=== PATIENT | female | born 1990 | race Caucasian/White ===

== ENCOUNTER 2017-01-21 23:29 | Emergency (ER) | payer OTHER ==
[~2017-01-21 23:29] MED LIST: AUGMENTIN875 MG PO; PRENATAL FORMU1 EACH PO; PROVENTIL HFA6.7 GM INH; TYLENOL500 MG PO
[2017-01-22 00:05] LABS: BILIRUBIN NEGATIVE (NEGATIVE); BLOOD 2+ Ery/uL (NEGATIVE); CLARITY CLEAR (CLEAR); COLOR YELLOW (YELLOW); GLUCOSE (U) NORMAL (NORMAL); KETONE (U) TRACE mg/dL (NEGATIVE); LEUKOCYTES NEGATIVE Leu/uL (NEGATIVE); NITRITE NEGATIVE (NEGATIVE); PROTEIN NEGATIVE (NEGATIVE); SPECIFIC GRAVITY 1.015 (1.001-1.030); UROBILINOGEN 0.2 mg/dL (0.2-1.0); pH 6.5 (5.0-9.0)
[2017-01-22 00:07] LABS: BASOPHIL 0.2 % (0-2); EOSINOPHIL 10.5 % (0-5); HCT 43.6 % (37.0-47.0); LYMPHOCYTE 28.1 % (15-48); MCH 29.1 pg (25.0-31.0); MCHC 34.4 g/dL (32.0-36.0); MCV 84.7 fL (78.0-100.0); MONOCYTE 6.4 % (0-12); MPV 9.2 fL (6.0-9.5); NEUTROPHIL 54.8 % (41-80); PLT 306 K/uL (150-400); RBC 5.15 M/uL (4.20-5.40); RDW 13.1 % (11.5-14.0); WBC 8.3 K/uL (4.0-10.5)
[2017-01-22 00:18] LABS: AMPHETAMINES NEGATIVE (NEGATIVE); BARBITURATES NEGATIVE (NEGATIVE); BENZODIAZEPINES POSITIVE (NEGATIVE); COCAINE NEGATIVE (NEGATIVE); MARIJUANA (THC) NEGATIVE (NEGATIVE); METHADONE NEGATIVE (NEGATIVE); TRICYCLIC ANTIDEPRESSANT POSITIVE (NEGATIVE)
[2017-01-22 00:47] LABS: BILIRUBIN - TOTAL 0.5 mg/dL (0.1-1.0); CREATININE 0.9 mg/dL (0.5-1.0); GLOBULIN (CALCULATION) 3.1 g/dL (2.2-4.2); POTASSIUM 3.4 mmol/L (3.5-5.1); TOTAL PROTEIN 8.1 g/dL (6.4-8.3)
== END 2017-01-22 04:13 | disposition home or self-care (01) ==
LOC: FER 23:29
PROVIDERS: Internal Medicine
DX: K58.9 Irritable bowel syndrome, unspecified (principal); R11.2 Nausea with vomiting, unspecified; M54.9 Dorsalgia, unspecified; K21.9 Gastro-esophageal reflux disease without esophagitis; F41.9 Anxiety disorder, unspecified; Z79.899 Other long term (current) drug therapy
CPT/HCPCS: 36415; 80053; 80305; 81001; 82150; 83690; 85025; 86140; C9113; J2405

== ENCOUNTER 2017-01-24 16:31 | Emergency (ER) | payer OTHER ==
[2017-01-24 17:35] LABS: BILIRUBIN NEGATIVE (NEGATIVE); BLOOD 2+ Ery/uL (NEGATIVE); CLARITY CLEAR (CLEAR); COLOR STRAW (YELLOW); GLUCOSE (U) NORMAL (NORMAL); KETONE (U) NEGATIVE (NEGATIVE); LEUKOCYTES NEGATIVE Leu/uL (NEGATIVE); NITRITE NEGATIVE (NEGATIVE); PROTEIN NEGATIVE (NEGATIVE); SPECIFIC GRAVITY <=1.005 (1.001-1.030); UROBILINOGEN 0.2 mg/dL (0.2-1.0); pH 6.5 (5.0-9.0)
[2017-01-24 17:51] LABS: BASOPHIL 0.3 % (0-2); EOSINOPHIL 7.9 % (0-5); HCT 41.2 % (37.0-47.0); HGB 14.4 g/dl (12.5-16.0); LYMPHOCYTE 20.5 % (15-48); MCH 29.6 pg (25.0-31.0); MCV 84.8 fL (78.0-100.0); MONOCYTE 4.2 % (0-12); MPV 9.9 fL (6.0-9.5); NEUTROPHIL 67.1 % (41-80); PLT 315 K/uL (150-400); RBC 4.86 M/uL (4.20-5.40); RDW 12.9 % (11.5-14.0); WBC 10.9 K/uL (4.0-10.5)
[2017-01-24 18:01] LABS: BACTERIA TRACE; URINARY WBC RARE
[2017-01-24 18:04] LABS: ALBUMIN 4.8 g/dL (3.5-5.0); BILIRUBIN - TOTAL 0.4 mg/dL (0.1-1.0); CREATININE 0.9 mg/dL (0.5-1.0); GLOBULIN (CALCULATION) 2.9 g/dL (2.2-4.2); POTASSIUM 3.5 mmol/L (3.5-5.1); TOTAL PROTEIN 7.7 g/dL (6.4-8.3)
== END 2017-01-24 18:46 | disposition home or self-care (01) ==
LOC: FER 16:31
PROVIDERS: Nurse Practitioner
DX: R19.7 Diarrhea, unspecified (principal); R10.84 Generalized abdominal pain; R11.2 Nausea with vomiting, unspecified
CPT/HCPCS: 36415; 80053; 81001; 82150; 83690; 85025; J1885; J2270; J2765

== ENCOUNTER 2017-01-29 15:59 | Emergency (ER) | payer OTHER ==
[2017-01-29 17:55] LABS: BASOPHIL 0.3 % (0-2); EOSINOPHIL 9.7 % (0-5); HCT 46.1 % (37.0-47.0); LYMPHOCYTE 18.1 % (15-48); MCH 29.1 pg (25.0-31.0); MCHC 34.9 g/dL (32.0-36.0); MCV 83.4 fL (78.0-100.0); MONOCYTE 6.3 % (0-12); MPV 9.5 fL (6.0-9.5); NEUTROPHIL 65.6 % (41-80); PLT 334 K/uL (150-400); RBC 5.53 M/uL (4.20-5.40); RDW 12.8 % (11.5-14.0)
[2017-01-29 17:56] LABS: BILIRUBIN NEGATIVE (NEGATIVE); BLOOD 2+ Ery/uL (NEGATIVE); CLARITY CLEAR (CLEAR); COLOR YELLOW (YELLOW); GLUCOSE (U) NORMAL (NORMAL); KETONE (U) NEGATIVE (NEGATIVE); LEUKOCYTES NEGATIVE Leu/uL (NEGATIVE); NITRITE NEGATIVE (NEGATIVE); PROTEIN NEGATIVE (NEGATIVE); SPECIFIC GRAVITY <=1.005 (1.001-1.030); UROBILINOGEN 0.2 mg/dL (0.2-1.0); pH 5.5 (5.0-9.0)
[2017-01-29 17:56] LABS: HGB 16.1 g/dl (12.5-16.0)
[2017-01-29 18:01] LABS: BACTERIA TRACE
[2017-01-29 18:32] LABS: ALBUMIN 5.4 g/dL (3.5-5.0); BILIRUBIN - TOTAL 0.4 mg/dL (0.1-1.0); CREATININE 0.9 mg/dL (0.5-1.0); GLOBULIN (CALCULATION) 3.3 g/dL (2.2-4.2); TOTAL PROTEIN 8.7 g/dL (6.4-8.3)
== END 2017-01-29 18:56 | disposition home or self-care (01) ==
LOC: FER 15:59
PROVIDERS: Emergency Medicine
DX: R10.9 Unspecified abdominal pain (principal); R11.2 Nausea with vomiting, unspecified; R19.7 Diarrhea, unspecified; J45.909 Unspecified asthma, uncomplicated
CPT/HCPCS: 36415; 80053; 81001; 82150; 83690; 85025; 87339; J2270; J2405

== ENCOUNTER → 2017-01-30 | Day surgery (SDC) | payer OTHER | END | disposition home or self-care (01) | LOC: FAS 10:51 | DX: K29.50 Unspecified chronic gastritis without bleeding (principal); K21.9 Gastro-esophageal reflux disease without esophagitis; F32.9 Major depressive disorder, single episode, unspecified; F41.1 Generalized anxiety disorder; J45.909 Unspecified asthma, uncomplicated; Z90.89 Acquired absence of other organs; Z82.5 Family history of asthma and other chronic lower respiratory diseases; Z83.3 Family history of diabetes mellitus; Z83.42 Family history of familial hypercholesterolemia; Z82.49 Family history of ischemic heart disease and other diseases of the circulatory system; Z83.49 Family history of other endocrine, nutritional and metabolic diseases; Z80.42 Family history of malignant neoplasm of prostate; Z79.899 Other long term (current) drug therapy; Z98.890 Other specified postprocedural states | CPT/HCPCS: 84703; 88305; J2704 ==

== ENCOUNTER → 2017-02-01 | Day surgery (SDC) | payer OTHER | END | disposition home or self-care (01) | LOC: FAS 09:42 | DX: K81.1 Chronic cholecystitis (principal); J45.909 Unspecified asthma, uncomplicated; K21.9 Gastro-esophageal reflux disease without esophagitis; N39.0 Urinary tract infection, site not specified; F41.8 Other specified anxiety disorders; E03.9 Hypothyroidism, unspecified; D50.9 Iron deficiency anemia, unspecified; G43.909 Migraine, unspecified, not intractable, without status migrainosus; Z79.899 Other long term (current) drug therapy; Z98.890 Other specified postprocedural states | CPT/HCPCS: 74300; 88304; J1100; J1170; J2270; J2405; J2704; J2710; J3010; Q9962 ==

== ENCOUNTER 2021-03-17 18:28 | Emergency (ER) | payer OTHER ==
[~2021-03-17 18:28] MED LIST changes: +BACTRIM DS TAB1 EACH PO; +CEFDINIR300 MG PO; +INDERAL20 MG PO; +IRON325 M1 PO; +KLONOPIN1 MG PO; +LAMICTAL100 MG PO; +LAXATIVE SUPPOS10 MG PR; +MIRALAX 238GM238 GM PO; +NORCO 5-325 TA1 EACH PO; +PERCOCET 7.5/321 TAB PO; +ZOFRAN4 MG PO; +ZOFRAN8 MG PO; +ZYPREXA 5MG TABL5 MG PO
[2021-03-17 19:36] LABS: BILIRUBIN NEGATIVE (NEGATIVE); BLOOD TRACE-INTACT Ery/uL (NEGATIVE); CLARITY CLEAR (CLEAR); COLOR YELLOW (YELLOW); GLUCOSE (U) NORMAL (NORMAL); LEUKOCYTES 1+ Leu/uL (NEGATIVE); NITRITE NEGATIVE (NEGATIVE); PROTEIN NEGATIVE (NEGATIVE); UROBILINOGEN 0.2 mg/dL (0.2-1.0)
[2021-03-17 19:38] LABS: ECSTASY (MDMA) NEGATIVE (NEGATIVE); MARIJUANA (THC) NEGATIVE (NEGATIVE); METHADONE NEGATIVE (NEGATIVE); OPIATES NEGATIVE (NEGATIVE)
[2021-03-17 19:39] LABS: AMPHETAMINES NEGATIVE (NEGATIVE); BARBITURATES NEGATIVE (NEGATIVE); OXYCODONE NEGATIVE (NEGATIVE)
[2021-03-17 19:40] LABS: EOSINOPHIL 13.2 % (0-5); HCT 36.4 % (37.0-47.0); HGB 12.2 g/dl (12.5-16.0); LYMPHOCYTE 30.8 % (15-48); MCHC 33.5 g/dL (32.0-36.0); MCV 86.5 fL (78.0-100.0); MONOCYTE 6.9 % (0-12); MPV 9.2 fL (6.0-9.5); NEUTROPHIL 47.9 % (41-80); NRBC 0; PLT 345 K/uL (150-400); RBC 4.21 M/uL (4.20-5.40); RDW 12.7 % (11.5-14.0); WBC 8.1 K/uL (4.0-10.5)
[2021-03-17 19:41] LABS: BACTERIA TRACE; URINARY RBC RARE; URINARY WBC RARE
[2021-03-17 19:55] LABS: ALBUMIN 3.9 g/dL (3.4-5.0); BILIRUBIN - TOTAL 0.2 mg/dL (0.2-1.0); BUN/CREAT RATIO (CALC) 16.3 RATIO; CREATININE 0.92 mg/dL (0.51-0.95); GLOBULIN (CALCULATION) 3.6 g/dL; POTASSIUM 4.1 mmol/L (3.5-5.1); TOTAL PROTEIN 7.5 g/dL (6.4-8.2)
[2021-03-17 20:38] LABS: AMYLASE 42 U/L (25-115); LIPASE 136 U/L (73-393)
[2021-03-22 13:07] LABS: CHLAMYDIA TRACHOMATIS, NAA Negative (Negative); NEISSERIA GONORRHOEAE, NAA Negative (Negative)
== END 2021-03-17 22:04 | disposition home or self-care (01) ==
LOC: FER 18:28
PROVIDERS: Nurse Practitioner Family
DX: R10.84 Generalized abdominal pain (principal); R11.2 Nausea with vomiting, unspecified; F41.9 Anxiety disorder, unspecified; Z90.49 Acquired absence of other specified parts of digestive tract; Z87.19 Personal history of other diseases of the digestive system; Z79.899 Other long term (current) drug therapy
CPT/HCPCS: 36415; 80053; 80305; 81001; 82150; 83690; 85025; 87491; 87591; J1170; J2405; J7030; Q9967

== ENCOUNTER 2021-05-09 18:29 | Emergency (ER) | payer OTHER ==
[2021-05-09 19:20] LABS: BASOPHIL 0.8 % (0-2); EOSINOPHIL 7.9 % (0-5); HCT 39.7 % (37.0-47.0); HGB 13.3 g/dl (12.5-16.0); LYMPHOCYTE 33.7 % (15-48); MCH 28.7 pg (25.0-31.0); MCHC 33.5 g/dL (32.0-36.0); MCV 85.6 fL (78.0-100.0); MONOCYTE 6.2 % (0-12); MPV 9.7 fL (6.0-9.5); NEUTROPHIL 51.2 % (41-80); NRBC 0; PLT 331 K/uL (150-400); RBC 4.64 M/uL (4.20-5.40); RDW 12.9 % (11.5-14.0); WBC 8.2 K/uL (4.0-10.5)
[2021-05-09 19:39] LABS: ALBUMIN 3.7 g/dL (3.4-5.0); BILIRUBIN - TOTAL 0.3 mg/dL (0.2-1.0); BUN/CREAT RATIO (CALC) 12.1 RATIO; CREATININE 0.91 mg/dL (0.51-0.95); GLOBULIN (CALCULATION) 4.1 g/dL; TOTAL PROTEIN 7.8 g/dL (6.4-8.2)
== END 2021-05-09 21:11 | disposition left against medical advice (07) ==
LOC: FER 18:29
PROVIDERS: Emergency Medicine
DX: R00.0 Tachycardia, unspecified (principal); Z53.8 Procedure and treatment not carried out for other reasons
CPT/HCPCS: 36415; 80053; 85025

== ENCOUNTER 2021-10-29 20:10 | Emergency (ER) | payer OTHER ==
[2021-10-30 03:01] LABS: CREATININE 0.99 mg/dL (0.51-0.95); POTASSIUM 4.1 mmol/L (3.5-5.1)
[2021-10-30 03:24] LABS: BASOPHIL 0.7 % (0-2); EOSINOPHIL 6.3 % (0-5); HCT 38.2 % (37.0-47.0); HGB 12.5 g/dl (12.5-16.0); LYMPHOCYTE 27.5 % (15-48); MCH 28.3 pg (25.0-31.0); MCHC 32.7 g/dL (32.0-36.0); MCV 86.4 fL (78.0-100.0); MONOCYTE 6.1 % (0-12); MPV 9.8 fL (6.0-9.5); NEUTROPHIL 59.2 % (41-80); NRBC 0; PLT 471 K/uL (150-400); RBC 4.42 M/uL (4.20-5.40); RDW 13.4 % (11.5-14.0); WBC 12.3 K/uL (4.0-10.5)
[2021-10-30] MEDS ORDERED: NORCO 5-325 TA1 EACH PO (06:00)
[2021-10-30] MEDS ORDERED: ONDANSETRON ODT4 MG SL (06:00)
== END 2021-10-30 06:16 | disposition home or self-care (01) ==
LOC: FER 20:10
PROVIDERS: Emergency Medicine Emergency Medical Services
DX: O08.1 Delayed or excessive hemorrhage following ectopic and molar pregnancy (principal); O08.89 Other complications following an ectopic and molar pregnancy; R10.2 Pelvic and perineal pain; J45.909 Unspecified asthma, uncomplicated
CPT/HCPCS: 36415; 80048; 84702; 85025; J0595; J1170; J1885; J2405